=== PATIENT | female | born 1985 | race Caucasian/White ===

== ENCOUNTER → 2016-09-14 | Outpatient (REF) | payer OTHER ==
[~2016-09-14] MED LIST: BACT800T OR; BUDE150T OR; TRAZ50TA OR
== END ==
LOC: M LAB REF 17:53
PROVIDERS: ATTEND Physician Assistant
DX: J02.9 Acute pharyngitis, unspecified (principal)

== ENCOUNTER → 2017-07-01 | Outpatient (REF) | payer OTHER ==
[2017-07-01 13:41] LABS: HEMATOCRIT 41.8 % (36.0-47.0); HEMOGLOBIN 14.3 g/dl (12.0-16.0); MEAN CORPUSCULAR HEMOGLOBIN 31.4 pg (27.0-33.0); MEAN CORPUSCULAR HGB CONC 34.2 g/dl (32.0-36.5); MEAN CORPUSCULAR VOLUME 91.7 fl (80.0-96.0); PLATELET COUNT, AUTOMATED 318 10^3/uL (150-450); RED BLOOD COUNT 4.56 10^6/uL (4.00-5.40); RED CELL DISTRIBUTION WIDTH 12.2 % (11.5-14.5); WHITE BLOOD COUNT 8.7 10^3/uL (4.0-10.0)
[2017-07-01 14:29] LABS: HCG, SERUM QUANTITATIVE 5466 MIU/ML
[2017-07-02 11:40] LABS: HEPATITIS B SURFACE ANTIGEN NEGATIVE (NEGATIVE); RUBELLA IgG QUALITATIVE IMMUNE (IMMUNE)
[2017-07-02 12:06] LABS: HEPATITIS C VIRUS ABY INDEX 0.1 INDEX (<0.8)
[2017-07-02 12:07] LABS: HIV 1&2 SCREEN CENTAUR NEGATIVE (NEGATIVE)
== END ==
LOC: M LAB REF 12:52
DX: O36.80X0 Pregnancy with inconclusive fetal viability, not applicable or unspecified (principal); Z3A.00 Weeks of gestation of pregnancy not specified
CPT/HCPCS: 86762

== ENCOUNTER → 2017-08-03 | Outpatient (REF) | payer OTHER | LOC: M LAB REF 13:01 | DX: Z34.01 Encounter for supervision of normal first pregnancy, first trimester (principal); Z3A.09 9 weeks gestation of pregnancy ==

== ENCOUNTER → 2017-11-26 | Outpatient (CLI) | payer OTHER ==
[2017-11-26 13:17] LABS: HEMATOCRIT 32.8 % (36.0-47.0); HEMOGLOBIN 11.5 g/dl (12.0-15.5); MEAN CORPUSCULAR HEMOGLOBIN 32.3 pg (27.0-33.0); MEAN CORPUSCULAR HGB CONC 35.1 g/dl (32.0-36.5); MEAN CORPUSCULAR VOLUME 92.1 fl (80.0-96.0); PLATELET COUNT, AUTOMATED 242 10^3/uL (150-450); RED BLOOD COUNT 3.56 10^6/uL (4.00-5.40); RED CELL DISTRIBUTION WIDTH 13.1 % (11.5-14.5); WHITE BLOOD COUNT 17.1 10^3/uL (4.0-10.0)
[2017-11-26 14:11] LABS: GLUCOSE CHALLENGE TEST 1 HOUR 129 MG/DL (LESS THAN 140)
[2017-11-29 08:52] LABS: AB SCREEN (INDIRECT COOMBS)VIS 1 1
== END ==
LOC: M LAB 11:39
DX: Z34.02 Encounter for supervision of normal first pregnancy, second trimester (principal); Z36.89 Encounter for other specified antenatal screening; Z67.41 Type O blood, Rh negative
CPT/HCPCS: 82950

== ENCOUNTER → 2017-12-22 | Outpatient (CLI) | payer OTHER ==
[2017-12-22 12:14] LABS: HEMATOCRIT 32.3 % (36.0-47.0); HEMOGLOBIN 11.1 g/dl (12.0-15.5); MEAN CORPUSCULAR HEMOGLOBIN 31.1 pg (27.0-33.0); MEAN CORPUSCULAR HGB CONC 34.4 g/dl (32.0-36.5); MEAN CORPUSCULAR VOLUME 90.5 fl (80.0-96.0); PLATELET COUNT, AUTOMATED 262 10^3/uL (150-450); RED BLOOD COUNT 3.57 10^6/uL (4.00-5.40); RED CELL DISTRIBUTION WIDTH 13.3 % (11.5-14.5); WHITE BLOOD COUNT 14.1 10^3/uL (4.0-10.0)
[2017-12-22 12:33] LABS: CREATININE, URINE 92.2 MG/DL; URINE TOTAL PROTEIN 11.5 MG/DL (0-12)
[2017-12-22 12:35] LABS: ALT/SGPT 26 U/L (12-78); AST/SGOT 22 U/L (7-37); BILIRUBIN,TOTAL 0.3 MG/DL (0.2-1.0); GLOMERULAR FILTRATION RATE > 60.0 (>60); LDH LACTATE DEHYDROGENASE 160 U/L (84-246); URIC ACID 4.1 MG/DL (2.6-6.0)
[2017-12-22 20:57] LABS: CREATININE 24 HOUR, URINE 1567.4 MG/24HR (600-1800); TOTAL PROTEIN 24 HOUR URINE 195.5 MG/24HR (50-150); TOTAL VOLUME, URINE 1700 ML
== END ==
LOC: M LAB 11:10
DX: R03.0 Elevated blood-pressure reading, without diagnosis of hypertension (principal)
CPT/HCPCS: 84460

== ENCOUNTER → 2018-02-04 | Outpatient (REF) | payer OTHER | LOC: M LAB REF 12:51 | DX: O36.0130 Maternal care for anti-D [Rh] antibodies, third trimester, not applicable or unspecified (principal) ==

== ENCOUNTER → 2018-02-08 | Outpatient (CLI) | payer OTHER ==
[2018-02-08 18:02] LABS: TOTAL VOLUME, URINE 1800 ML
[2018-02-08 18:24] LABS: HEMATOCRIT 32.2 % (36.0-47.0); HEMOGLOBIN 10.7 g/dl (12.0-15.5); MEAN CORPUSCULAR HEMOGLOBIN 28.5 pg (27.0-33.0); MEAN CORPUSCULAR HGB CONC 33.2 g/dl (32.0-36.5); MEAN CORPUSCULAR VOLUME 85.6 fl (80.0-96.0); PLATELET COUNT, AUTOMATED 256 10^3/uL (150-450); RED BLOOD COUNT 3.76 10^6/uL (4.00-5.40); RED CELL DISTRIBUTION WIDTH 13.6 % (11.5-14.5); WHITE BLOOD COUNT 12.8 10^3/uL (4.0-10.0)
[2018-02-08 18:27] LABS: CREATININE, URINE 80.5 MG/DL
[2018-02-08 18:59] LABS: ALT/SGPT 16 U/L (12-78); AST/SGOT 20 U/L (7-37); BILIRUBIN,TOTAL 0.4 MG/DL (0.2-1.0); CREATININE FOR GFR 0.37 MG/DL (0.55-1.30); GLOMERULAR FILTRATION RATE > 60.0 (>60); LDH LACTATE DEHYDROGENASE 164 U/L (84-246); URIC ACID 4.2 MG/DL (2.6-6.0)
== END ==
LOC: M LAB 17:33
DX: R03.0 Elevated blood-pressure reading, without diagnosis of hypertension (principal)
CPT/HCPCS: 84460

== ENCOUNTER 2018-02-10 12:13 | Inpatient (IN) | payer OTHER ==
[2018-02-10] MEDS: LACTATED RINGER'S 1000 ML IV (12:30)
[2018-02-10] MEDS: LR 1,000 ML IV ×2 (13:53→22:00)
[2018-02-10] MEDS: miSOPROStol 50 MCG 1/2 TAB (S0191) PO ×3 (14:07→23:03)
[2018-02-10 14:09] LABS: HEMATOCRIT 32.8 % (36.0-47.0); HEMOGLOBIN 10.8 g/dl (12.0-15.5); MEAN CORPUSCULAR HEMOGLOBIN 28.5 pg (27.0-33.0); MEAN CORPUSCULAR HGB CONC 32.9 g/dl (32.0-36.5); MEAN CORPUSCULAR VOLUME 86.5 fl (80.0-96.0); PLATELET COUNT, AUTOMATED 258 10^3/uL (150-450); RED BLOOD COUNT 3.79 10^6/uL (4.00-5.40); RED CELL DISTRIBUTION WIDTH 13.8 % (11.5-14.5); WHITE BLOOD COUNT 12.9 10^3/uL (4.0-10.0)
[2018-02-10 14:50] LABS: ALT/SGPT 18 U/L (12-78); AST/SGOT 21 U/L (7-37); BILIRUBIN,TOTAL 0.3 MG/DL (0.2-1.0); CREATININE FOR GFR 0.44 MG/DL (0.55-1.30); GLOMERULAR FILTRATION RATE > 60.0 (>60); LDH LACTATE DEHYDROGENASE 187 U/L (84-246); URIC ACID 4.2 MG/DL (2.6-6.0)
[2018-02-10 20:30] LABS: HEMATOCRIT 35.5 % (36.0-47.0); HEMOGLOBIN 11.3 g/dl (12.0-15.5); MEAN CORPUSCULAR HGB CONC 31.8 g/dl (32.0-36.5); MEAN CORPUSCULAR VOLUME 87.9 fl (80.0-96.0); PLATELET COUNT, AUTOMATED 234 10^3/uL (150-450); RED BLOOD COUNT 4.04 10^6/uL (4.00-5.40); RED CELL DISTRIBUTION WIDTH 13.8 % (11.5-14.5); WHITE BLOOD COUNT 13.2 10^3/uL (4.0-10.0)
[2018-02-10 20:46] LABS: ALT/SGPT 17 U/L (12-78); AST/SGOT 21 U/L (7-37); BILIRUBIN,TOTAL 0.3 MG/DL (0.2-1.0); GLOMERULAR FILTRATION RATE > 60.0 (>60); LDH LACTATE DEHYDROGENASE 177 U/L (84-246); URIC ACID 4.1 MG/DL (2.6-6.0)
[2018-02-11] MEDS: miSOPROStol 50 MCG 1/2 TAB (S0191) PO (02:57)
[2018-02-11] MEDS: LR 1,000 ML IV ×5 (06:05→23:37)
[2018-02-11 07:01] LABS: HEMATOCRIT 32.3 % (36.0-47.0); HEMOGLOBIN 10.5 g/dl (12.0-15.5); MEAN CORPUSCULAR HEMOGLOBIN 28.2 pg (27.0-33.0); MEAN CORPUSCULAR HGB CONC 32.5 g/dl (32.0-36.5); MEAN CORPUSCULAR VOLUME 86.6 fl (80.0-96.0); PLATELET COUNT, AUTOMATED 242 10^3/uL (150-450); RED BLOOD COUNT 3.73 10^6/uL (4.00-5.40); RED CELL DISTRIBUTION WIDTH 13.7 % (11.5-14.5)
[2018-02-11 07:17] LABS: ALT/SGPT 18 U/L (12-78); AST/SGOT 23 U/L (7-37); BILIRUBIN,TOTAL 0.5 MG/DL (0.2-1.0); CREATININE FOR GFR 0.47 MG/DL (0.55-1.30); GLOMERULAR FILTRATION RATE > 60.0 (>60); LDH LACTATE DEHYDROGENASE 195 U/L (84-246); URIC ACID 4.2 MG/DL (2.6-6.0)
[2018-02-11] MEDS: LACTATED RINGER'S 1000 ML IV (07:25)
[2018-02-11] MEDS: BICITRA 30ML SOLN UDC PO (07:30)
[2018-02-11] MEDS ORDERED: MORPHINE PRES-FREE INJ 10 MG/10 ML VIAL (J2274) As Ordered (07:42)
[2018-02-11] MEDS ORDERED: METOCLOPRAMIDE INJ 10MG/2ML VIAL (J2765) IV (07:50)
[2018-02-11] MEDS ORDERED: ONDANSETRON 4MG/2ML VIAL (J2405) IV ×3 (07:50→09:15)
[2018-02-11] MEDS ORDERED: NALOXONE INJ 0.4 MG/1 ML VIAL (J2310) IV ×2 (07:50)
[2018-02-11] MEDS ORDERED: OXYTOCIN INJ 10 UNITS/ML VIAL (J2590) As Ordered ×4 (08:19)
[2018-02-11] MEDS ORDERED: KETOROLAC 60 MG/2 ML VIAL (J1885) As Ordered (08:32)
[2018-02-11] MEDS ORDERED: ONDANSETRON 4MG/2ML VIAL (J2405) As Ordered (08:33)
[2018-02-11 08:54] LABS: CORD GAS ABE V -1.5; CORD GAS HCO3 V 25.1 MEQ/L; CORD GAS O2 SAT A 22.2 %; CORD GAS O2 SAT V 39.7 %; CORD GAS PCO2 A 56.5 mmHg; CORD GAS PCO2 V 48.5 mmHg; CORD GAS PH A 7.281 UNITS; CORD GAS PH V 7.331 UNITS; CORD GAS PO2 A 12.9 mmHg; CORD GAS PO2 V 18.7 mmHg; CORD GAS SBC A 20.7 MEQ/L; CORD GAS SBC V 21.5 MEQ/L; CORD GAS TCO2 A 27.7 MEQ/L; CORD GAS TCO2 V 26.5 MEQ/L
[2018-02-11] MEDS ORDERED: MEASLES,MUMPS,RUBELLA VACCINE INJ (MMR-II) (90707) SC (09:00)
[2018-02-11] MEDS ORDERED: MOM 30ML SUSPENSION UDC PO (09:00)
[2018-02-11] MEDS ORDERED: METHYLERGONOVINE MALEATE 0.2 MG TAB PO (09:00)
[2018-02-11] MEDS: PRENATAL VITAMINS CHEWABLE TABLET PO (09:00)
[2018-02-11] MEDS: DOCUSATE SODIUM 100 MG CAP PO ×2 (09:00→20:44)
[2018-02-11] MEDS ORDERED: NALBUPHINE HCL 10 MG/ML AMP (J2300) IV (09:15)
[2018-02-11] MEDS ORDERED: MEPERIDINE INJ 25 MG/ML VIAL (J2175) IV (09:15)
[2018-02-11] MEDS ORDERED: fentaNYL 100 MCG/2 ML INJECTION (J3010) IV (09:15)
[2018-02-11] MEDS ORDERED: HYDROMORPHONE HCL 0.5 MG/ 0.5 ML SYRINGE (J1170 PER 1) IV (09:15)
[2018-02-11] MEDS ORDERED: PERCOCET 5MG/325MG TAB PO (09:15)
[2018-02-11] MEDS: NALBUPHINE HCL 10 MG/ML AMP (J2300) IV ×2 (11:15→18:40)
[2018-02-11] MEDS ORDERED: ADACEL/BOOSTRIX VACCINE (DIPHTH/PERTUSS/ACELL/TETANUS)0.5ML SYR (90715) IM (17:45)
[2018-02-11] MEDS: IBUPROFEN 800 MG TAB PO (18:40)
[2018-02-11] MEDS: NORCO, ANEXSIA 5/325MG TABLET (HYDROcodone/ACETAMINOPHEN) PO (20:44)
[2018-02-12] MEDS: IBUPROFEN 800 MG TAB PO ×3 (02:02→18:11)
[2018-02-12 07:19] LABS: HEMATOCRIT 27.4 % (36.0-47.0); HEMOGLOBIN 8.8 g/dl (12.0-15.5); MEAN CORPUSCULAR HEMOGLOBIN 27.8 pg (27.0-33.0); MEAN CORPUSCULAR HGB CONC 32.1 g/dl (32.0-36.5); MEAN CORPUSCULAR VOLUME 86.7 fl (80.0-96.0); PLATELET COUNT, AUTOMATED 217 10^3/uL (150-450); RED BLOOD COUNT 3.16 10^6/uL (4.00-5.40); RED CELL DISTRIBUTION WIDTH 13.9 % (11.5-14.5); WHITE BLOOD COUNT 11.8 10^3/uL (4.0-10.0)
[2018-02-12] MEDS: DOCUSATE SODIUM 100 MG CAP PO ×2 (08:58→19:43)
[2018-02-12] MEDS: PRENATAL VITAMINS CHEWABLE TABLET PO (08:58)
[2018-02-12 09:50] LABS: FETAL SCREEN PROF. 1 1
[2018-02-12] MEDS: RHOGAM 300 MCG (1500 IU) INJ (J2790) IM (10:07)
[2018-02-12] MEDS: NORCO, ANEXSIA 5/325MG TABLET (HYDROcodone/ACETAMINOPHEN) PO ×2 (14:02→19:44)
[2018-02-12] MEDS: ANUSOL HC CREAM 30GM TOP (17:25)
[2018-02-13] MEDS: IBUPROFEN 800 MG TAB PO (02:20)
[2018-02-13] MEDS: NORCO, ANEXSIA 5/325MG TABLET (HYDROcodone/ACETAMINOPHEN) PO (06:25)
[2018-02-13] MEDS: PRENATAL VITAMINS CHEWABLE TABLET PO (09:03)
[2018-02-13] MEDS: DOCUSATE SODIUM 100 MG CAP PO (09:03)
== END 2018-02-13 11:25 | disposition home or self-care (01) | DRG 766 ==
LOC: M LDI 12:13 → M OBS 02-11 10:38
PROC: 10D00Z1 Extraction of Products of Conception, Low, Open Approach (ICD-10-PCS; principal; 2018-02-11 07:55)
PROC: 3E0P7GC Introduction of Other Therapeutic Substance into Female Reproductive, Via Natural or Artificial Opening (ICD-10-PCS; 2018-02-11 07:55)
DX: O14.14 Severe pre-eclampsia complicating childbirth (principal); O99.214 Obesity complicating childbirth; O99.343 Other mental disorders complicating pregnancy, third trimester; Z3A.37 37 weeks gestation of pregnancy; F41.9 Anxiety disorder, unspecified; F90.9 Attention-deficit hyperactivity disorder, unspecified type; O61.0 Failed medical induction of labor; O69.1XX0 Labor and delivery complicated by cord around neck, with compression, not applicable or unspecified; Z37.0 Single live birth; Z68.37 Body mass index [BMI] 37.0-37.9, adult

== ENCOUNTER 2018-03-10 21:34 | Emergency (ER) | payer OTHER ==
[2018-03-11] MEDS: NYSTATIN CREAM 15 GM TOP (00:01)
== END 2018-03-11 00:06 | disposition home or self-care (01) ==
LOC: M ED 03-11 00:06
DX: B35.4 Tinea corporis (principal); F90.9 Attention-deficit hyperactivity disorder, unspecified type; Z88.0 Allergy status to penicillin; Z88.2 Allergy status to sulfonamides; Z88.8 Allergy status to other drugs, medicaments and biological substances; Z91.018 Allergy to other foods
CPT/HCPCS: 99283

== ENCOUNTER → 2018-09-17 | Outpatient (REF) | payer OTHER ==
[~2018-09-17] MED LIST changes: +IBUP80TA PO; +NYSTOI TOP; +PERCOCET PO; +PRENTAB9 PO
== END ==
LOC: M LAB REF 11:20
PROVIDERS: ATTEND Nurse Practitioner Family
DX: L02.91 Cutaneous abscess, unspecified (principal)

== ENCOUNTER → 2020-05-29 | Outpatient (REF) | payer OTHER ==
[2020-05-29 13:00] LABS: HEMATOCRIT 42.1 % (36.0-47.0); HEMOGLOBIN 14.6 g/dl (12.0-15.5); MEAN CORPUSCULAR HEMOGLOBIN 31.5 pg (27.0-33.0); MEAN CORPUSCULAR HGB CONC 34.7 g/dl (32.0-36.5); MEAN CORPUSCULAR VOLUME 90.9 fl (80.0-96.0); PLATELET COUNT, AUTOMATED 281 10^3/uL (150-450); RED BLOOD COUNT 4.63 10^6/uL (4.00-5.40); WHITE BLOOD COUNT 10.4 10^3/uL (4.0-10.0)
[2020-05-29 14:15] LABS: HCG, SERUM QUANTITATIVE 28209 MIU/ML; HEPATITIS B SURFACE ANTIGEN NEGATIVE (NEGATIVE); HEPATITIS C VIRUS ABY INDEX < 0.0 INDEX (<0.8); HIV 1&2 SCREEN CENTAUR NEGATIVE (NEGATIVE)
== END ==
LOC: M LAB REF 12:29
PROVIDERS: ATTEND Obstetrics & Gynecology
DX: O36.80X0 Pregnancy with inconclusive fetal viability, not applicable or unspecified (principal)

== ENCOUNTER → 2020-10-01 | Outpatient (CLI) | payer OTHER ==
--- NOTE | 2020-10-02 08:01 | REP ---
INDICATION: F/U ANATOMY COMPARISON: Study from [facility] TECHNIQUE: Transabdominal obstetrical ultrasound with color Doppler evaluation. FINDINGS: Examination demonstrates a single live intrauterine in cephalic presentation. motion is identified by technologist. Placenta is noted posterior and grade 0 with evidence for marginal previa measuring roughly 14 mm from the internal os. Cervix measures 3.4 cm in length and appears closed. No evidence for nuchal cord. Gestational age by LMP 24 weeks 3 days with MARJORIE 01/18/2021. Gestational age by current measurements 25 weeks 1 day with MARJORIE 01/13/2021. FHR equals 149 beats per minute. BPD: 6.3 cm at 25 weeks 4 days HC: 22.5 cm at 24 weeks 4 days AC: 21.9 cm at 26 weeks 2 days FL: 4.4 cm at 24 weeks 4 days HL: 4.1 cm at 24 weeks 6 days HC/AC: 1.03 Estimated weight 818 grams (85thpercentile). Anatomical assessment demonstrates normal structures and the previously noted choroid plexus cysts have resolved. IMPRESSION: Single live intrauterine in cephalic presentation demonstrating appropriate estimated weight and growth. Previously noted choroid plexus cysts have resolved. <Electronically signed by Ladarius Fiore > 10/02/20 [id number]
== END ==
LOC: M WHC 06:55
PROVIDERS: ATTEND Advanced Practice Midwife
DX: Z34.82 Encounter for supervision of other normal pregnancy, second trimester (principal)

== ENCOUNTER → 2020-11-05 | Outpatient (CLI) | payer OTHER ==
[2020-11-05 10:15] LABS: HEMATOCRIT 34.5 % (36.0-47.0); HEMOGLOBIN 11.5 g/dl (12.0-15.5); MEAN CORPUSCULAR HEMOGLOBIN 30.9 pg (27.0-33.0); MEAN CORPUSCULAR HGB CONC 33.3 g/dl (32.0-36.5); MEAN CORPUSCULAR VOLUME 92.7 fl (80.0-96.0); PLATELET COUNT, AUTOMATED 241 10^3/uL (150-450); RED BLOOD COUNT 3.72 10^6/uL (4.00-5.40); WHITE BLOOD COUNT 12.8 10^3/uL (4.0-10.0)
== END ==
LOC: M LAB 08:09
PROVIDERS: ATTEND Obstetrics & Gynecology
DX: Z34.82 Encounter for supervision of other normal pregnancy, second trimester (principal); Z3A.00 Weeks of gestation of pregnancy not specified
CPT/HCPCS: 36415; 82950; 85027; 86850; 86901; J2790

== ENCOUNTER → 2020-11-08 | Outpatient (CLI) | payer OTHER | LOC: M LAB 07:11 | PROVIDERS: ATTEND Obstetrics & Gynecology | DX: R73.02 Impaired glucose tolerance (oral) (principal) ==

== ENCOUNTER → 2020-11-27 | Outpatient (REF) | payer OTHER ==
[2020-11-27 16:30] LABS: CREATININE 24 HOUR, URINE 1729.1 MG/24HR (600-1800); CREATININE, URINE 79.5 MG/DL; TOTAL PROTEIN 24 HOUR URINE 267.5 MG/24HR (50-150); URINE TOTAL PROTEIN 12.3 MG/DL (0-12)
== END ==
LOC: M LAB REF 15:12
PROVIDERS: ATTEND Advanced Practice Midwife
DX: Z34.83 Encounter for supervision of other normal pregnancy, third trimester (principal); Z3A.00 Weeks of gestation of pregnancy not specified

== ENCOUNTER → 2020-11-28 | Outpatient (CLI) | payer OTHER ==
[2020-11-28 18:37] LABS: ALT/SGPT 14 U/L (12-78); BILIRUBIN,TOTAL 0.5 MG/DL (0.2-1.0); CREATININE FOR GFR 0.33 MG/DL (0.55-1.30); GLOMERULAR FILTRATION RATE > 60.0 (>60); LDH LACTATE DEHYDROGENASE 182 U/L (84-246)
== END ==
LOC: M LAB 17:31
PROVIDERS: ATTEND Advanced Practice Midwife
DX: Z34.83 Encounter for supervision of other normal pregnancy, third trimester (principal)

== ENCOUNTER → 2020-12-03 | Outpatient (CLI) | payer OTHER ==
--- NOTE | 2020-12-03 16:45 | REP ---
INDICATION: PREG 32+ WKS AFT EFW COMPARISON: 10/01/2020 TECHNIQUE: Transabdominal obstetrical ultrasound with color Doppler evaluation. FINDINGS: Examination demonstrates a single live intrauterine in cephalic presentation. motion is identified by technologist. Placenta is noted posterior and grade 1 without evidence for placenta previa or abruption. Amniotic fluid volume is normal. Cervix measures 3.7 cm in length and appears closed.. Selected gestational age: 33 weeks 3 days with MARJORIE 01/18/2021. Gestational age by current measurements 37 weeks 3 days with MARJORIE 12/21/2020. FHR equals 131 beats per minute. BPD: 9.2 cm at 37 weeks 3 days HC: 32.4 cm at 36 weeks 4 days AC: 35.7 cm at 39 weeks 4 days FL: 7.3 cm at 37 weeks 4 days HL: 6.2 cm at 36 weeks 0 days HC/AC: 0.91 Estimated weight 3514 grams (greater than 97thpercentile based on selected age). BECCA: 9.2 cm (8.2-24.6) Umbilical artery SD ratio: 3.08 (1.76-3.73) IMPRESSION: 1. Single live advanced gestation in cephalic presentation demonstrating greater than expected weight. 2. Previously suggested marginal previa has resolved. 3. Amniotic fluid index is lower limits of normal range. <Electronically signed by Ladarius Fiore > 12/03/20 [id number]
== END ==
LOC: M RAD 12:44
PROVIDERS: ATTEND Advanced Practice Midwife
DX: O26.843 Uterine size-date discrepancy, third trimester (principal)

== ENCOUNTER 2020-12-14 22:33 | Outpatient (CLI) | payer OTHER ==
[~2020-12-14] VITALS: Ht 165.1 cm; Wt 110.5 kg
[2020-12-14] MEDS ORDERED: LR 1,000 ML IV ONE (23:10)
[2020-12-14 23:11] VITALS: BP 142/75
[2020-12-14 23:30] LABS: HEMATOCRIT 30.6 % (36.0-47.0); HEMOGLOBIN 10.2 g/dl (12.0-15.5); MEAN CORPUSCULAR HEMOGLOBIN 29.4 pg (27.0-33.0); MEAN CORPUSCULAR HGB CONC 33.3 g/dl (32.0-36.5); MEAN CORPUSCULAR VOLUME 88.2 fl (80.0-96.0); PLATELET COUNT, AUTOMATED 194 10^3/uL (150-450); RED BLOOD COUNT 3.47 10^6/uL (4.00-5.40); WHITE BLOOD COUNT 13.1 10^3/uL (4.0-10.0)
[2020-12-14 23:33] VITALS: BP 118/58
[2020-12-15 00:02] LABS: ALT/SGPT 16 U/L (12-78); BILIRUBIN,TOTAL 0.4 MG/DL (0.2-1.0); CREATININE FOR GFR 0.49 MG/DL (0.55-1.30); CREATININE,RANDOM URINE 74.2 MG/DL; GLOMERULAR FILTRATION RATE > 60.0 (>60); LDH LACTATE DEHYDROGENASE 179 U/L (84-246); TOTAL PROTEIN,RANDOM URINE 10.7 MG/DL (0.0-12.0); URIC ACID 4.9 MG/DL (2.6-6.0)
== END 2020-12-15 00:46 | disposition home or self-care (01) ==
LOC: M LDO 22:33
PROVIDERS: ATTEND Obstetrics & Gynecology
DX: O26.893 Other specified pregnancy related conditions, third trimester (principal); R25.2 Cramp and spasm; Z3A.35 35 weeks gestation of pregnancy; O09.523 Supervision of elderly multigravida, third trimester; O99.613 Diseases of the digestive system complicating pregnancy, third trimester; K21.9 Gastro-esophageal reflux disease without esophagitis; Z88.2 Allergy status to sulfonamides; Z91.040 Latex allergy status; Z88.1 Allergy status to other antibiotic agents; Z88.8 Allergy status to other drugs, medicaments and biological substances; Z91.018 Allergy to other foods
CPT/HCPCS: 59025; 82247; 82565; 82570; 83615; 84156; 84450; 84460; 84550; 85027; G0378; G0463

== ENCOUNTER → 2020-12-19 | Outpatient (REF) | payer OTHER | LOC: M LAB REF 12:31 | PROVIDERS: ATTEND Obstetrics & Gynecology | DX: Z34.83 Encounter for supervision of other normal pregnancy, third trimester (principal) ==

== ENCOUNTER → 2020-12-23 | Outpatient (REF) | payer OTHER ==
[~2020-12-23] MED LIST changes: +CEPH25SS PO
== END ==
LOC: M LAB REF 15:51
PROVIDERS: ATTEND Physician Assistant
DX: L03.114 Cellulitis of left upper limb (principal)

== ENCOUNTER 2020-12-26 20:57 | Outpatient (CLI) | payer OTHER ==
[~2020-12-26] VITALS: Ht 165.1 cm; Wt 112.4 kg
[~2020-12-26 20:57] MED LIST changes: -CEPH25SS PO
--- NOTE | 2020-12-26 21:39 | IPNPDOC ---
Text Note Date of Service The patient was seen on 12/26/20. NOTE S: 35 yo at 36 5/7 weeks presents with constant pelvic pressure. She considers it 10/10 intensity. no bleeding. Pt of Dr. Urias [facility]. Pt has h/o prior section. O: AVSS NAD Abd: NT, gravid, soft FHT: Category one toco: irregular mild cx: L/C/P ext: NT A/P 35 yo at 36 5/7 weeks with reassuring testing. Pt not in labor discharge home f-u Dr. Urias as scheduled. AD HERRMANN MD Dec 26, 2020 21:39
[2020-12-26] MEDS ORDERED: CEPH25SS PO (21:41)
[2020-12-26 21:43] VITALS: BP 130/79
== END 2020-12-26 21:45 | disposition home or self-care (01) ==
LOC: M LDO 20:57
PROVIDERS: ATTEND Specialist
DX: O26.893 Other specified pregnancy related conditions, third trimester (principal); Z3A.36 36 weeks gestation of pregnancy; R10.2 Pelvic and perineal pain; O34.211 Maternal care for low transverse scar from previous cesarean delivery
CPT/HCPCS: 59025; G0378; G0463

== ENCOUNTER 2021-01-05 11:15 | Outpatient (CLI) | payer OTHER ==
[~2021-01-05] VITALS: Ht 165.1 cm; Wt 111.4 kg
[~2021-01-05 11:15] MED LIST changes: +CEPH25SS PO
[2021-01-05 11:31] VITALS: BP 129/66
[2021-01-05 11:48] VITALS: BP 122/59
[2021-01-05 12:04] VITALS: BP 125/59
[2021-01-05 12:19] VITALS: BP 123/56
[2021-01-05] MEDS ORDERED: PROC2.5C TOP (12:52)
--- NOTE | 2021-01-05 12:55 | IPNPDOC ---
Text Note Date of Service The patient was seen on 01/05/21. NOTE Subjective: A 35-year-old 3 para 2 at 38 weeks with complaints of elevated blood pressure at home. She denies any headaches visual changes or abdominal pain. She also complains of worsening hemorrhoids. Objective: Vital signs are stable. Serial blood pressures all within normal limits. Category 1 rate tracing with contractions, Gen: well appearing, NAD abd: gravid, nttp A/P: 35-year-old 3 para 2 at 38w1d, normotensive Reassuring status Hemorrhoidsprescription for Proctosol provided -Labor precautions and kick counts -Follow-up at next OB appointment Kaya Smith MD VS,Peggy, I+O VS, Peggy I+O Vital Signs Date Time Temp Pulse Resp B/P (MAP) Pulse Ox O2 Delivery O2 Flow Rate FiO2 01/05/21 12:19 91 18 123/56 (78) 01/05/21 11:31 99.0 KAYA SMITH MD. Jan 05, 2021 12:55
== END 2021-01-05 12:42 | disposition home or self-care (01) ==
LOC: M LDO 11:15
PROVIDERS: ATTEND Obstetrics & Gynecology
DX: O26.893 Other specified pregnancy related conditions, third trimester (principal); Z3A.38 38 weeks gestation of pregnancy; R03.0 Elevated blood-pressure reading, without diagnosis of hypertension; O22.43 Hemorrhoids in pregnancy, third trimester; O09.523 Supervision of elderly multigravida, third trimester; Z88.2 Allergy status to sulfonamides; Z91.040 Latex allergy status; Z88.1 Allergy status to other antibiotic agents; Z88.8 Allergy status to other drugs, medicaments and biological substances; Z91.018 Allergy to other foods; Z79.899 Other long term (current) drug therapy
CPT/HCPCS: 59025; G0378; G0463

== ENCOUNTER → 2021-01-10 | Outpatient (CLI) | payer OTHER ==
[~2021-01-10] MED LIST changes: +PROC2.5C TOP
== END ==
LOC: EEVIPCON 10:00 → M LABSMTC 10:05
PROVIDERS: ATTEND Anesthesiology
DX: Z01.812 Encounter for preprocedural laboratory examination (principal); Z20.822 Contact with and (suspected) exposure to COVID-19

== ENCOUNTER 2021-01-15 05:04 | Inpatient (IN) | payer OTHER ==
[~2021-01-15] VITALS: Ht 165.1 cm; Wt 111.7 kg
[2021-01-15] MEDS ORDERED: LACTATED RINGER'S 1000 ML IV STA (05:31)
[2021-01-15] MEDS ORDERED: BICITRA 30ML SOLN UDC PO ONE (05:35)
[2021-01-15] MEDS ORDERED: ceFAZolin SOD 2 GM in IV 1 EA IV ONE (05:35)
[2021-01-15] MEDS ORDERED: LR 1,000 ML IV SCH (05:35)
[2021-01-15 05:43] VITALS: BP 138/80
[2021-01-15 05:49] LABS: HEMATOCRIT 31.7 % (36.0-47.0); HEMOGLOBIN 10.2 g/dl (12.0-15.5); MEAN CORPUSCULAR HEMOGLOBIN 27.1 pg (27.0-33.0); MEAN CORPUSCULAR HGB CONC 32.2 g/dl (32.0-36.5); MEAN CORPUSCULAR VOLUME 84.3 fl (80.0-96.0); PLATELET COUNT, AUTOMATED 229 10^3/uL (150-450); RED BLOOD COUNT 3.76 10^6/uL (4.00-5.40); WHITE BLOOD COUNT 12.8 10^3/uL (4.0-10.0)
[2021-01-15] MEDS ORDERED: dexameTHASONE 4 MG/ML 1ML VIAL (J1100 PER 1MG) As Ordered ONE (07:16)
[2021-01-15] MEDS ORDERED: OXYTOCIN INJ 10 UNITS/ML VIAL (J2590) As Ordered ONE (07:16)
[2021-01-15] MEDS ORDERED: KETOROLAC 60MG 2ML VIAL As Ordered ONE (07:16)
[2021-01-15] MEDS ORDERED: ONDANSETRON 4MG/2ML VIAL As Ordered ONE (07:16)
[2021-01-15] MEDS ORDERED: fentaNYL 100 MCG/2 ML INJECTION (J3010) As Ordered ONE ×2 (07:17→12:09)
[2021-01-15] MEDS ORDERED: MORPHINE PRES-FREE INJ 10 MG/10 ML VIAL (J2274) As Ordered ONE (07:17)
[2021-01-15] MEDS ORDERED: RHOGAM 300 MCG (1500 IU) INJ (J2790) IM SCH (08:55)
[2021-01-15] MEDS ORDERED: SIMETHICONE 80MG CHEW TAB PO PRN (08:55)
[2021-01-15] MEDS ORDERED: MOM 30ML SUSPENSION UDC PO PRN (08:55)
[2021-01-15] MEDS ORDERED: MEASLES,MUMPS,RUBELLA VACCINE INJ (MMR-II) (90707) SC SCH (08:55)
[2021-01-15] MEDS ORDERED: NALBUPHINE HCL 10 MG/ML AMP (J2300) IV PRN (08:56)
[2021-01-15] MEDS ORDERED: ONDANSETRON 4MG/2ML VIAL IV PRN ×2 (08:56→10:20)
[2021-01-15] MEDS ORDERED: diphenhydrAMINE 50MG/ML VIAL (J1200) IV PRN (08:56)
[2021-01-15] MEDS ORDERED: METOCLOPRAMIDE INJ 10MG/2ML VIAL (J2765 PER 1) IV PRN (08:56)
[2021-01-15] MEDS ORDERED: NALOXONE INJ 0.4MG/1ML VIAL (J2310 PER 1MG) IV PRN ×2 (08:56)
[2021-01-15] MEDS: DOCUSATE SODIUM 100MG CAPSULE PO SCH ×2 (09:00→21:32)
[2021-01-15] MEDS: PRENATAL VITAMINS CHEWABLE TABLET PO SCH (09:00)
[2021-01-15 09:31] LABS: CORD GAS ABE A -1.8; CORD GAS HCO3 A 25.6 MEQ/L; CORD GAS O2 SAT A 51.3 %; CORD GAS PCO2 A 53.4 mmHg; CORD GAS PH A 7.299 UNITS; CORD GAS PO2 A 22.7 mmHg; CORD GAS SBC A 21.8 MEQ/L; CORD GAS TCO2 A 27.3 MEQ/L
[2021-01-15 09:32] LABS: CORD GAS ABE V -3.9; CORD GAS O2 SAT V 78.1 %; CORD GAS PCO2 V 37.8 mmHg; CORD GAS PH V 7.362 UNITS; CORD GAS PO2 V 33.7 mmHg; CORD GAS SBC V 20.8 MEQ/L; CORD GAS TCO2 V 22.1 MEQ/L
[2021-01-15] MEDS ORDERED: oxyCODONE 5MG TAB PO PRN (10:20)
[2021-01-15] MEDS ORDERED: fentaNYL 100 MCG/2 ML INJECTION (J3010) IV PRN (10:20)
[2021-01-15] MEDS ORDERED: METHYLERGONOVINE MALEATE 0.2 MG/ML VIAL (J2210) IM STA (10:57)
[2021-01-15] MEDS ORDERED: OXYTOCIN 30 UNITS IN 0.9% NaCl 500ML IV BAG (J2590) As Ordered ONE ×2 (11:07→12:23)
[2021-01-15] MEDS: OXYTOCIN DRIP 30 UNITS in IV 1 EA IV SCH ×2 (11:10→12:24)
[2021-01-15 13:00] VITALS: BP 140/62
[2021-01-15 13:30] VITALS: BP 141/64
[2021-01-15] MEDS: KETOROLAC 30 MG/ML 1ML VIAL IV SCH ×2 (15:49→21:58)
--- NOTE | 2021-01-15 16:16 | RO ---
OPERATIVE NOTE DATE OF OPERATION: 01/15/2021 Anabella is a 35-year-old female with a history of prior section, has been admitted at term for elective repeat section. PREOPERATIVE DIAGNOSIS: 1. Term for elective repeat section. POSTOPERATIVE DIAGNOSIS: 1. Term for elective repeat section. 2. Omental adhesion. PROCEDURE: 1. Repeat section. 2. Revision of old scar. 3. Lysis of adhesions. SURGEON: Marcial Urias DO MARKETING ACCOUNT MANAGER: Brenda Robles CNM ANESTHESIA: Spinal COMPLICATIONS: None. ESTIMATED BLOOD LOSS: 600 mL FINDINGS: Live female infant in occiput anterior position, 9-9, weight 11 lb, 3 oz. Normal appearing tubes and ovaries. Dense omental adhesions noted. DESCRIPTION OF PROCEDURE: After obtaining informed consent, the patient was taken to the operating room. Once spinal anesthetic was found to be adequate, she was then draped and prepped in the usual sterile fashion in the supine position. At this point, with the help of Patti Robles, an elliptical incision was made. This was carried down to the fascia. The fascia was incised in a midline fashion. The old scar was removed. The fascia was then incised in a midline fashion, carried through laterally. The superior aspect of the fascia was then grasped with two Imer clamps, tented off and dissected off the rectus muscles sharply. The inferior aspect was dissected off in a similar fashion. The rectus muscles were in midline fashion. The peritoneum was identified. The peritoneal cavity was entered bluntly. Superior and inferior dissection of the peritoneum was then done with good visualization of the bladder. At this point, a Mobius skin retractor was placed. A low transverse uterine incision was made. The omental adhesions were removed and the infant was delivered in atraumatic fashion. The nose and mouth were bulb suctioned, cord doubly clamped and cut and infant was handed over to the awaiting warmer. Cord blood and cord gas were sent. The placenta was removed manually. The uterus was cleared of all clot and debris and the uterine incision was then repaired in two separate layers of 0 Vicryl sutures. All superficial bleeders were coagulated. The pelvis was copiously irrigated with normal saline and suctioned out. The remaining omental adhesions were also removed using a series of sharp and blunt dissection. After freeing the omentum, attention turned to the peritoneum which was closed in a running fashion using 2-0 Vicryl. The fascia was closed in two separate segments of 0 Vicryl sutures. All superficial bleeders were coagulated and the skin was reapproximated in a subcuticular fashion using 3-0 Vicryl on a Deepak. Steri-Strips were placed. The patient tolerated the procedure well. She was then transferred to recovery room in stable condition. [facility]
[2021-01-15 17:01] VITALS: BP 138/68
[2021-01-15 22:00] VITALS: BP 132/72
[2021-01-16 02:21] VITALS: BP 128/71
[2021-01-16] MEDS: KETOROLAC 30 MG/ML 1ML VIAL IV SCH (03:49)
[2021-01-16 06:18] VITALS: BP 125/64
[2021-01-16 08:23] LABS: HEMATOCRIT 26.3 % (36.0-47.0); HEMOGLOBIN 8.3 g/dl (12.0-15.5); MEAN CORPUSCULAR HEMOGLOBIN 27.3 pg (27.0-33.0); MEAN CORPUSCULAR HGB CONC 31.6 g/dl (32.0-36.5); MEAN CORPUSCULAR VOLUME 86.5 fl (80.0-96.0); PLATELET COUNT, AUTOMATED 240 10^3/uL (150-450); RED BLOOD COUNT 3.04 10^6/uL (4.00-5.40); WHITE BLOOD COUNT 16.4 10^3/uL (4.0-10.0)
[2021-01-16] MEDS ORDERED: BOOSTRIX/ADACEL VACCINE (DIPHTH/PERTUSS/ACELL/TETANUS) 0.5ML SYR IM ONE (09:00)
[2021-01-16] MEDS ORDERED: diphenhydrAMINE 50MG/ML VIAL (J1200) IV ONE (09:40)
[2021-01-16 09:55] VITALS: BP 124/67
[2021-01-16] MEDS: DOCUSATE SODIUM 100MG CAPSULE PO SCH ×2 (10:05→21:08)
[2021-01-16] MEDS: PRENATAL VITAMINS CHEWABLE TABLET PO SCH (10:05)
[2021-01-16] MEDS: IBUPROFEN 800 MG TAB PO SCH ×2 (11:48→19:57)
[2021-01-16 15:00] VITALS: BP 155/74
[2021-01-16] MEDS: PERCOCET 5MG/325MG TAB PO PRN (15:22)
[2021-01-16 18:00] VITALS: BP 145/79
[2021-01-16] MEDS ORDERED: PERI0.126 PO (19:27)
[2021-01-16] MEDS ORDERED: MUPI2OI TOP (19:29)
[2021-01-16] MEDS ORDERED: HIBI4LIQ EXT (19:33)
[2021-01-16 22:00] VITALS: BP 158/62
[2021-01-17] MEDS: PERCOCET 5MG/325MG TAB PO PRN (00:09)
[2021-01-17 02:00] VITALS: BP 148/62
[2021-01-17] MEDS: IBUPROFEN 800 MG TAB PO SCH ×2 (03:27→11:17)
[2021-01-17 05:54] VITALS: BP 140/72
--- NOTE | 2021-01-17 08:42 | DS.PDOC ---
Discharge Summary General Date of Admission Jan 15, 2021 at 05:04 Date of Discharge 01/17/2021 Discharge Summary DATE OF ADMISSION: 01/15/2021 DATE OF DISCHARGE: 01/17/2021 ADMISSION DIAGNOSIS: 39+ weeks gestation history of prior low transverse section DISCHARGE DIAGNOSIS: Same DISCHARGE SUMMARY: The patient was admitted at 39+ weeks gestation for a scheduled repeat low transverse section. The section delivery was uncomplicated. Her postoperative course was uncomplicated as well. On postoperative day #2, she was meeting all discharge criteria. Of note the patient screen positive for MRSA she was given chlorhexidine body wash mouthwash and mupirocin nasal ointment to take upon discharge. PHYSICAL EXAMINATION ON DATE OF DISCHARGE: Normotensive. Normal heart rate. Afebrile. HEART: Regular rate and rhythm. No murmurs, gallops, or rubs. LUNGS: Clear to auscultation bilaterally. ABDOMEN: Soft, nontender, nondistended. Incision bandage clean and dry. EXTREMITIES: Nonedematous, nontender. She was meeting all discharge criteria on postoperative day #2. We reviewed routine fever, infectious, pain, and bleeding precautions. She is to followup in 2 weeks for incision check. Her postoperative medications are Percocet, Motrin, and Colace. Vital Signs/I&Os Vital Signs Date Time Temp Pulse Resp B/P (MAP) Pulse Ox O2 Delivery O2 Flow Rate FiO2 01/17/21 05:54 98.0 76 16 140/72 (94) 98 Room Air I&O- Last 24 Hours up to 6 AM 01/17/21 06:00 Output Total 300 ml Balance -300 ml Laboratory Data Labs 24H Laboratory Tests 2 01/16/21 17:05: Methicillin-Resist S.aureus DNA PCR DETECTEDA Discharge Medications Scheduled Chlorhexidine Gluconate (Peridex) 473 Ml Mouthwash, 15 ML PO BID Chlorhexidine Gluconate (Hibiclens) 118 Ml Liquid, 4 % EXT DAILY scrub over body / rinse off during shower for 5 days twice a month Hydrocortisone (Proctosol-Hc) 28.35 Gm Crm.pe.tania, 1 APLCT TOP DAILY Mupirocin (Mupirocin) 2 % Oint...g., 1 APLCT TOP TID apply to affected area(s) No.137/Iron/Folic Acd ( Vitamin Tablet) 1 Tab Tab, 1 TAB PO DAILY, (Reported) Allergies Coded Allergies: Sulfa (Sulfonamide Antibiotics) (Verified Allergy, Mild, RASH, 12/31/20) Pecan (Verified Allergy, Unknown, 12/31/20) TAPE (Verified Allergy, Unknown, BANDAID ADHESIVE, 01/01/21) [place] (Verified Allergy, Unknown, 12/31/20) dicloxacillin (Verified Adverse Reaction, Mild, VOMIT, 12/31/20) phenyltoloxamine (Verified Adverse Reaction, Mild, BLOODY NOSE, 01/01/21) KENNETH GORDON DO Jan 17, 2021 08:42
[2021-01-17] MEDS ORDERED: DOK1CAP7 PO (08:43)
[2021-01-17] MEDS ORDERED: IBUP80TA PO (08:43)
[2021-01-17] MEDS ORDERED: PERCOCET PO (08:43)
[2021-01-17] MEDS: DOCUSATE SODIUM 100MG CAPSULE PO SCH (08:46)
[2021-01-17] MEDS: PRENATAL VITAMINS CHEWABLE TABLET PO SCH (08:46)
== END 2021-01-17 11:30 | disposition home or self-care (01) | DRG 788 ==
LOC: M LDI 05:04 → M OBS 12:32
PROVIDERS: ADMIT Obstetrics & Gynecology; ATTEND Obstetrics & Gynecology
PROC: 10D00Z1 Extraction of Products of Conception, Low, Open Approach (ICD-10-PCS; principal; 2021-01-15 07:30)
DX: O34.211 Maternal care for low transverse scar from previous cesarean delivery (principal); Z3A.39 39 weeks gestation of pregnancy; Z37.0 Single live birth

== ENCOUNTER 2021-01-18 23:22 | Emergency (ER) | payer OTHER ==
[~2021-01-18] VITALS: Ht 165.1 cm; Wt 110.0 kg
[~2021-01-18 23:22] MED LIST changes: +DOK1CAP7 PO; +HIBI4LIQ EXT; +MUPI2OI TOP; +PERI0.126 PO
[2021-01-19] MEDS ORDERED: LABETALOL 100MG/20ML VIAL IV STA ×2 (00:36→02:17)
[2021-01-19 01:21] LABS: BASO # 0.1 10^3/uL (0.0-0.2); BASO % 0.4 % (0.0-1.0); EOS # 0.4 10^3/uL (0.0-0.5); EOS % 3.7 % (0.0-3.0); HEMATOCRIT 26.6 % (36.0-47.0); HEMOGLOBIN 8.3 g/dl (12.0-15.5); LYMPH # 2.7 10^3/uL (1.5-5.0); LYMPH % 23.4 % (24.0-44.0); MEAN CORPUSCULAR HGB CONC 31.2 g/dl (32.0-36.5); MEAN CORPUSCULAR VOLUME 86.6 fl (80.0-96.0); MONO # 0.7 10^3/uL (0.0-0.8); MONO % 6.2 % (2.0-8.0); NEUTROPHILS # 7.5 10^3/uL (1.5-8.5); NEUTROPHILS % 65.8 % (36.0-66.0); PLATELET COUNT, AUTOMATED 281 10^3/uL (150-450); RED BLOOD COUNT 3.07 10^6/uL (4.00-5.40); WHITE BLOOD COUNT 11.4 10^3/uL (4.0-10.0)
[2021-01-19 01:47] LABS: ALBUMIN 2.4 GM/DL (3.2-5.2); ALT/SGPT 36 U/L (12-78); BILIRUBIN,DIRECT 0.1 MG/DL (0.0-0.2); BILIRUBIN,TOTAL 0.4 MG/DL (0.2-1.0); BLOOD UREA NITROGEN 11 MG/DL (7-18); CARBON DIOXIDE LEVEL 26 MEQ/L (21-32); CHLORIDE LEVEL 109 MEQ/L (98-107); CREATININE FOR GFR 0.52 MG/DL (0.55-1.30); GLOMERULAR FILTRATION RATE > 60.0 (>60); GLUCOSE, FASTING 84 MG/DL (70-100); POTASSIUM SERUM 3.7 MEQ/L (3.5-5.1); SODIUM LEVEL 141 MEQ/L (136-145); TOTAL PROTEIN 5.6 GM/DL (6.4-8.2)
[2021-01-19 03:00] VITALS: BP 138/61
[2021-01-19] MEDS ORDERED: LABE200T32 PO (03:27)
--- NOTE | 2021-01-20 20:16 | ECGEPIP ---
[facility] - ED Test Date: 2021-01-19 Pat Name: JENARO WOLF Department: Room: - Gender: Female Batchmaker: Brianda ANN : [id number] Requested By: PEDRO PABLO Bedolla Order Number: [id number] Reading MD: Lucie Dias Measurements Intervals [place] Rate: 79 P: 50 MO: 148 QRS: 44 QRSD: 90 T: 39 QT: 388 QTc: 444 Interpretive Statements Sinus rhythm with premature supraventricular complexes NSTTW abnormalities No prior Electronically Signed on 01-20-2021 20:16:08 EDT by Lucie Dias
== END 2021-01-19 04:13 | disposition home or self-care (01) ==
LOC: M ED 23:22
DX: N93.9 Abnormal uterine and vaginal bleeding, unspecified (principal); I10 Essential (primary) hypertension; R51.9 Headache, unspecified; F90.9 Attention-deficit hyperactivity disorder, unspecified type; F41.9 Anxiety disorder, unspecified; Z88.1 Allergy status to other antibiotic agents; Z88.2 Allergy status to sulfonamides; Z88.8 Allergy status to other drugs, medicaments and biological substances; Z79.899 Other long term (current) drug therapy

== ENCOUNTER 2022-05-04 09:35 | Emergency (ER) | payer OTHER ==
[~2022-05-04] VITALS: Ht 177.8 cm; Wt 80.6 kg
[~2022-05-04 09:35] MED LIST changes: +DOK1CAP4 PO; -DOK1CAP7 PO; +LABE200T5 PO
[2022-05-04] MEDS ORDERED: ALPR1TAB3 (09:54)
[2022-05-04] MEDS ORDERED: AMPH1CAP5 (09:54)
[2022-05-04 11:49] LABS: HEMATOCRIT 41.7 % (36.0-47.0); HEMOGLOBIN 13.8 g/dl (12.0-15.5); MEAN CORPUSCULAR HEMOGLOBIN 30.7 pg (27.0-33.0); MEAN CORPUSCULAR HGB CONC 33.1 g/dl (32.0-36.5); MEAN CORPUSCULAR VOLUME 92.7 fl (80.0-96.0); PLATELET COUNT, AUTOMATED 245 10^3/uL (150-450); WHITE BLOOD COUNT 9.6 10^3/uL (4.0-10.0)
[2022-05-04 11:50] VITALS: BP 128/76
[2022-05-04] MEDS ORDERED: DOXYCYCLINE HYCLATE 100MG TABLET PO ONE (11:50)
[2022-05-04] MEDS ORDERED: DOXY-443 PO (11:51)
[2022-05-04 12:05] LABS: HCG, SERUM QUALITATIVE NEGATIVE (NEGATIVE)
[2022-05-04 12:13] LABS: BLOOD UREA NITROGEN 9 MG/DL (7-18); C REACTIVE PROTEIN QUANTITATIV 0.36 MG/DL (0.00-0.30); CALCIUM LEVEL 8.9 MG/DL (8.5-10.1); CARBON DIOXIDE LEVEL 26 MEQ/L (21-32); CHLORIDE LEVEL 111 MEQ/L (98-107); CREATININE FOR GFR 0.66 MG/DL (0.55-1.30); GLOMERULAR FILTRATION RATE > 60.0 (>60); GLUCOSE, FASTING 81 MG/DL (70-100); POTASSIUM SERUM 4.2 MEQ/L (3.5-5.1); SODIUM LEVEL 141 MEQ/L (136-145)
[2022-05-04 12:47] LABS: ERYTHROCYTE SEDIMENTATION RATE 7 mm/hr (0-20)
== END 2022-05-04 11:59 | disposition home or self-care (01) ==
LOC: M ED 09:35
DX: L03.211 Cellulitis of face (principal); L02.01 Cutaneous abscess of face; F41.9 Anxiety disorder, unspecified; F32.A Depression, unspecified; F17.200 Nicotine dependence, unspecified, uncomplicated; Z88.2 Allergy status to sulfonamides; Z91.010 Allergy to peanuts; Z91.048 Other nonmedicinal substance allergy status; Z79.899 Other long term (current) drug therapy

== ENCOUNTER → 2024-06-16 | Outpatient (CLI) | payer OTHER ==
[~2024-06-16] MED LIST changes: +ALPR1TAB3; +AMPH1CAP5; +DOXY-441 PO; +NYST100085 TOP; -NYSTOI TOP
== END ==
LOC: M WUC 11:17
PROVIDERS: ATTEND Physician Assistant
DX: S60.221A Contusion of right hand, initial encounter (principal); S50.11XA Contusion of right forearm, initial encounter; S40.011A Contusion of right shoulder, initial encounter; Y93.9 Activity, unspecified; Y92.9 Unspecified place or not applicable

== ENCOUNTER 2025-01-30 17:43 | Emergency (ER) | payer OTHER ==
[~2025-01-30] VITALS: Ht 165.1 cm; Wt 86.8 kg
[2025-01-30] MEDS ORDERED: CEPH500C (17:51)
[2025-01-30] MEDS ORDERED: FLUC150T9 (17:51)
[2025-01-30] MEDS ORDERED: PHEN-501 (17:51)
[2025-01-30] MEDS ORDERED: PROP10TA56 (17:51)
[2025-01-30] MEDS: NS (Normal Saline) 0.9% 1,000 ML IV ONE (18:55)
[2025-01-30] MEDS: ONDANSETRON 4MG 2ML VIAL IV ONE (18:59)
[2025-01-30] MEDS: KETOROLAC 30 MG/ML 1 ML VIAL IV ONE (18:59)
[2025-01-30 19:07] LABS: BASO # 0.0 10^3/uL (0.0-0.2); BASO % 0.2 % (0.0-1.0); EOS # 0.0 10^3/uL (0.0-0.5); EOS % 0.2 % (0.0-3.0); LYMPH # 2.1 10^3/uL (1.5-5.0); LYMPH % 14.6 % (24.0-44.0); MONO # 1.0 10^3/uL (0.0-0.8); MONO % 7.3 % (2.0-8.0); NEUTROPHILS # 11.0 10^3/uL (1.5-8.5); NEUTROPHILS % 77.3 % (36.0-66.0); PLATELET COUNT, AUTOMATED 246 10^3/uL (150-450)
[2025-01-30 19:14] LABS: KETONE, URINE AUTO RFX NEGATIVE (NEGATIVE); LEUKOCYTE ESTERASE UR AUTO RFX TRACE (NEGATIVE); MUCUS, URINE RFX SMALL (NEGATIVE); NITRITE, URINE AUTO RFX POSITIVE (NEGATIVE); RBC, URINE AUTO RFX 25 /HPF (0-3); SQUAM EPITHELIAL CELL UR AURFX 9 /HPF (0-6); WBC, URINE AUTO RFX 27 /HPF (0-3)
[2025-01-30 19:36] LABS: ALT/SGPT 21 U/L (7.0-40); AST/SGOT 17 U/L (<34)
[2025-01-30 19:47] LABS: HCG, SERUM QUALITATIVE NEGATIVE (NEGATIVE)
[2025-01-30] MEDS ORDERED: ISOVUE-370 76% 100 ML VIAL As Ordered ONE (19:58)
[2025-01-30] MEDS: ACETAMINOPHEN 500 MG TAB PO ONE (21:47)
[2025-01-30] MEDS: cefTRIAXone SOD 1 GM in DEXTROSE 5% (D5W) ADV/MINI-BAG 50 ML IV ONE (22:29)
[2025-01-30] MEDS ORDERED: CIPR500T39 PO (22:41)
[2025-01-30 23:14] VITALS: BP 122/70; TEMP 99; O2SAT 96
== END 2025-01-30 23:21 | disposition home or self-care (01) ==
LOC: M ED 17:43
DX: N10 Acute pyelonephritis (principal); I10 Essential (primary) hypertension; F90.9 Attention-deficit hyperactivity disorder, unspecified type; F41.9 Anxiety disorder, unspecified; Z79.2 Long term (current) use of antibiotics; Z79.899 Other long term (current) drug therapy; Z88.2 Allergy status to sulfonamides; Z88.8 Allergy status to other drugs, medicaments and biological substances; Z91.010 Allergy to peanuts; Z91.048 Other nonmedicinal substance allergy status
CPT/HCPCS: 71045; 74177; 80047; 80076; 81001; 83690; 84703; 85025; 87086; 87486; 87581; 87633; 87798; 96361; 96365; 96375; 99284; J0696; J1885; J2405; Q9967